=== PATIENT | female | born 1975 | race Two or more races ===

== ENCOUNTER 2021-03-15 16:45 | Emergency (ER) | payer SELFPAY ==
[~2021-03-15] VITALS: Ht 170.2 cm; Wt 65.8 kg
[2021-03-15 19:42] LABS: Basophils # (auto) 0 10 ^3/uL (0-0.2); Eosinophils # (auto) 0 10 ^3/uL (0-0.8); Monocytes # (auto) 0.4 10 ^3/uL (0-1.3); Neutrophils # (auto) 4.5 10 ^3/uL (1.6-8.6); Nucleated Red Blood Cells % 0.1 %; Red Blood Cells 4.93 10^6/uL (4.0-5.20)
[2021-03-15 19:43] LABS: Basophils % (auto) 0.3 % (0.0-2.0); Eosinophils % (auto) 0.5 % (0.0-7.0); Hematocrit 39.7 % (36.0-46.0); Hemoglobin 13.1 g/dL (12.2-16.2); Lymphocytes # (auto) 1.4 10 ^3/uL (0.4-5.4); Lymphocytes % (auto) 21.7 % (10.0-50.0); Mean Corpuscular Hemoglobin 26.5 pg (28.0-32.0); Mean Corpuscular Hgb Conc. 32.9 g/dL (32.0-36.0); Mean Corpuscular Volume 80.5 fL (80.0-100.0); Neutrophils % (auto) 71.5 % (37.0-80.0); Red Cell Distribution Width 15.8 % (11.8-14.3); White Blood Cell 6.3 10^3/uL (4.4-10.8)
[2021-03-15 20:00] LABS: Albumin 3.9 g/dL (3.4-5.0); Calcium 8.6 mg/dL (8.5-10.1); Potassium 3.7 mmol/L (3.5-5.1)
[2021-03-15 20:05] LABS: BUN/Creatinine Ratio 26.3; Bilirubin, Total 0.2 mg/dL (0.2-1.0); Total Protein 8.4 g/dL (6.4-8.2)
[2021-03-15 20:08] LABS: Beta HCG, Quantitative < 1 mlU/mL (1-3); Thyroid Stimulating Hormone 1.49 uIU/mL (0.358-3.74)
[2021-03-15 22:19] VITALS: BP 156/99
== END 2021-03-15 22:32 | disposition home or self-care (01) ==
LOC: ER 16:45 → EDBD 16:45 → ER 22:32
DX: R51.9 Headache, unspecified (principal)
CPT/HCPCS: 36415; 70450; 80053; 84443; 84484; 84702; 85025

== ENCOUNTER 2024-08-18 15:02 | Emergency (ER) | payer MEDICAID ==
[~2024-08-18] VITALS: Ht 152.4 cm; Wt 63.5 kg
--- NOTE | 2024-08-18 16:01 | ED.PDOC ---
Musculoskeletal HPI Comments 49 year old female RENE presents to the ED with chief complaint of foot laceration. Patient reports that she has history of varicose veins to her feet and when putting on her shoes today, she felt a sharp pain in her right foot and suddenly she started to experience bleeding from a bursted varicose vein. EMS relays that they applied multiple layers of gauze to help control the bleeding, which they eventually did, however, whenever the patient stood up, the bleeding started again. Patient notes she has not had an updated Tetanus vaccine in a long time. Patient denies any numbness, weakness, uncontrolled bleeding, or further injury. Chief Complaint: Lower Extremity Time Seen by MD: 15:56 Reviewed Notes: Nurses Notes, Medications, Allergies Allergies: Coded Allergies: Lisinopril (Verified Adverse Reaction, Intermediate, 08/18/24) Information Source: Patient Mode of Arrival: EMS Location: Right Extremity Location: Foot Timing: Hours Prehospital treatment: None Severity: Moderate Able to Move Extremity: Yes Bear Weight: Fully Pain: Moderate Mechanism: Spontaneous Circumstances: Spontaneous Onset of Symptoms: Spontaneous Symptoms: Pain DVT Risk Factors: NONE Associated signs and symptoms: Foot pain Past Medical History PAST MEDICAL HISTORY: HTN Past Medical History (Other): Varicose veins 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 Family History Family History: Unknown Social History Smoker: Non-Smoker Alcohol: Denies ETOH Use Drugs: Denies Drug Use Lives In: Home Constitutional: denies: chills, diaphoresis, fatigue, fever, malaise, sweats, weakness, others EENTM: denies: blurred vision, double vision, ear bleeding, ear discharge, ear drainage, ear pain, ear ringing, eye pain, eye redness, hearing loss, mouth pain, mouth swelling, nasal discharge, nose bleeding, nose congestion, nose pain, photophobia, tearing, throat pain, throat swelling, voice changes, others Respiratory: denies: cough, hemoptysis, orthopnea, SOB at rest, shortness of breath, SOB with excertion, stridor, wheezing, others Cardiovascular: denies: chest pain, dizzy spells, diaphoresis, Dyspnea on exertion, edema, irregular heart beat, left arm pain, lightheadedness, palpitations, PND, syncope, others Gastrointestinal: denies: abdomen distended, abdominal pain, blood streaked bowels, constipated, diarrhea, dysphagia, difficulty swallowing, hematemesis, melena, nausea, poor appetite, poor fluid intake, rectal bleeding, rectal pain, vomiting, others Genitourinary: denies: abnormal vagina bleeding, burning, dyspareunia, dysuria, flank pain, frequency, hematuria, incontinence, pain, , vagina discharge, urgency, others Neurological: denies: dizziness, fainting, headache, left sided numbness, left sided weakness, numbness, paresthesia, pre-existing deficit, right sided numbness, right sided weakness, seizure, speech problems, tingling, tremors, weakness, others Musculoskeletal: denies: back pain, gout, joint pain, joint swelling, muscle pain, muscle stiffness, neck pain, others Integumetry: reports: laceration (Right foot); denies: bruises, change in color, change in hair/nails, dryness, lesions, lumps, rash, wounds, others Allergic/Immunocompromised: denies: Difficulty Healing, Frequent Infections, Hives, Itching, others Hematologic/Lymphatic: denies: anemia, blood clots, easy bleeding, easy bruising, swollen glands, others Endocrine: denies: excessive hunger, excessive sweating, excessive thirst, excessive urination, flushing, intolerance to cold, intolerance to heat, unexplained weight gain, unexplained weight loss, others Psychiatric: denies: anxiety, bipolar disorder, depression, hopeless, panic disorder, schizophrenia, sleepless, suicidal, others All Other Systems: Reviewed and Negative Physical Exam General Appearance: No Apparent Distress, Normal HEENT: Normal ENT Inspection, Pharynx Normal, TMs Normal Neck: Full Range of Motion, Non-Tender, Normal, Normal Inspection Respiratory: Chest Non-Tender, Lungs Clear, No Accessory Muscle Use, No Respiratory Distress, Normal Breath Sounds Cardiovascular: No Edema, No JVD, No Murmur, No Gallop, Normal Peripheral Pulses, Regular Rate/Rhythm Breast Exam: Deferred Gastrointestinal: No Organomegaly, Non Tender, No Pulsatile Mass, Normal Bowel Sounds, Soft Genitalia: Deferred Pelvic: Deferred Rectal: Deferred Extremities: No calf tenderness, Normal capillary refill, Normal inspection, Normal range of motion, Non-tender, No pedal edema Musculoskeletal : Apperance: Normal Neurologic: Alert, services program manager II-XII nml as Tested, No Motor Deficits, Normal Affect, Normal Mood, No Sensory Deficits Cerebellar Function: Normal Reflexes: Normal Skin: Dry, Normal Color, Warm, Wounds (Small laceration to the medial aspect of right foot.) Lymphatic: No Adenopathy Was a procedure done? Was a procedure done?: Yes Sedation Sedation?: No Laceration Repair : Location Medial aspect of right foot Length 2cm Anesthetic: Nothing Laceration Repair Wound Comple: epidermis/dermis repair Informed consent obtained: Yes Risks, benefits, and alternati: Yes Notes Applied Surgicel to the wound with adhesive bandages used to hold it in place. No bleeding noted. Patient tolerated procedure well. Differential Diagnosis EXT Differential Diagnosis: Other (Bleeding vein) X-Ray, Labs, Meds, VS Vital Signs Date Time Temp Pulse Resp B/P (MAP) Pulse Ox O2 Delivery O2 Flow Rate FiO2 08/18/24 15:48 97.8 110 16 152/93 (112) 100 97.8 Current Medications Medications (Trade) Dose Ordered Sig/Edis Route Start Time Stop Time Status Last Admin Diphtheria/ Tetanus/Acell Pertussis (Boostrix T-Dap) 0.5 ml ONCE ONCE IM 08/18/24 15:30 08/18/24 15:31 DC 08/18/24 16:13 Time of 1ST Reevaluation: 16:00 Reevaluation 1ST: Resolved Patient Education/Counseling: Diagnosis, Treatment Family Education/Counseling: No Family Present Additional Information Reviewed patient's previous visit(s): 03/15/21 for [facility] The following tests were ordered, and results were reviewed by me: None Additional information was gathered from interviewing the following independent historian: EMS I reviewed and agreed with the following test results read by other provider: None I discussed treatments and results with medical personnel and: PATIENT Comprehensive systems review obtained and negative except for what is stated in the HPI. Departure 1 Departure Time of Disposition: 16:15 (Patient had a burst varicose vein in her lower leg. Patient's bleeding has stopped. Patient is feeling well we will discharge patient home) Impression: Primary Impression: Bleeding from varicose veins of right lower extremity Disposition: HOME / SELF CARE / HOMELESS Condition: Stable Additional Instructions: It is important to follow up with the regular doctors. If you begin bleeding ag ain please apply pressure and return to the emergency room. Discharged With: Self Critical Care Note Critical Care Time?: No Stability Stability form required: No Heart Score Heart Score: Heart Score Response (Comments) Value History N/A 0 EKG N/A 0 Age N/A 0 Risk Factors N/A 0 Troponin N/A 0 Total 0 I personally scribed for SLIME CRAWLEY MD ([email or web address]) on 08/18/24 at 16:01. Electronically submitted by Todd Beard ([email or web address]). SLIME CRAWLEY MD August 18, 2024 16:01
[2024-08-18] MEDS: TETANUS-DIPTH-ACEL PERTUSSIS 0.5ML SYR Tdap IM ONE (16:13)
[2024-08-18 17:34] VITALS: BP 138/74; PULSE 88; RESP 18; TEMP 97.2; O2SAT 99
== END 2024-08-18 17:35 | disposition home or self-care (01) ==
LOC: EDBD 15:02 → ER 15:08
DX: I83.891 Varicose veins of right lower extremity with other complications (principal); I10 Essential (primary) hypertension; Z98.51 Tubal ligation status; Z88.1 Allergy status to other antibiotic agents
CPT/HCPCS: 12001; 90471; 90715